=== PATIENT | male | born 1935 | race Caucasian/White ===

== ENCOUNTER → 2016-07-27 | Outpatient (CLI) | payer MEDICARE, BC ==
[~2016-07-27] MED LIST: ALLOPURINOL300 MG PO; AMARYL4 MG PO; ASPIR-TRIN325 MG PO; AVODART0.5 MG PO; BUMEX1 MG PO; COZAAR50 MG PO; D-MANNOSE PO; D-MANNOSE1 GM PO; ELEMENTAL IRON PO; GLUCOPHAGE1000 MG PO; IMDUR60 MG PO; K-TAB 10MEQ10 MEQ PO; KEFLEX250 MG PO; LEVOTHROID (SY50 MCG PO; LOPRESSOR100 MG PO; MAGNESIUM250 MG PO; NITROSTAT0.4 MG SL; NORCO 7.5-3251 EACH PO; OXYGEN M-15 INH; OXYGEN M-15 NS; PRADAXA150 MG PO; PRILOSEC20 M1 PO; TYLENOL WITH C1 EACH PO; ZAROXOLYN2.5 MG PO; ZOCOR40 MG PO
== END | disposition disaster alternative care site (69) ==
LOC: GRAD 15:30
DX: N20.0 Calculus of kidney (principal)

== ENCOUNTER → 2016-08-25 | Day surgery (SDC) | payer MEDICARE, BC ==
[~2016-08-25] VITALS: Ht 188 cm; Wt 114.0 kg
--- NOTE | ~2016-08-25 | OR ---
PATIENT'S NAME: ROXANA ROLDAN [facility] AGE: 81 Y [address] ROOM: [place] [id number] LOCATION: [facility] – [place] ADMIT DATE: 08/25/2016 OR/Procedure Report DISCHARGE DATE: FAMILY PHYSICIAN: Yuni Monae MD ATTENDING PHYSICIAN: Patricia Hughes SURGEON: Patricia Hughes MD TERMINOLOGIST: DATE OF PROCEDURE: 08/25/2016 PREOPERATIVE DIAGNOSIS: Left nephrolithiasis. POSTOPERATIVE DIAGNOSES: 1. Left nephrolithiasis. 2. Benign prostatic hypertrophy. PROCEDURES PERFORMED: 1. Cystoscopy. 2. Left stent placement. 3. Left extracorporeal shock wave lithotripsy. ANESTHESIA: MAC. COMPLICATIONS: None. INDICATION FOR PROCEDURE: The patient is an 81-year-old male with a history of recurrent cystitis with urinary retention. Abdominal x-ray revealed left nephrolithiasis. The patient does have a previous history of stone disease. DETAILS OF PROCEDURE: After informed consent was obtained, the patient was taken to the operating room. A MAC anesthetic was applied, and he was placed in the dorsal lithotomy position. The groin area was prepped and draped in the normal sterile fashion. Cystoscope was introduced into the urethra and bladder without difficulty. The left ureteral orifice was identified and cannulated with a guidewire up into the renal pelvis. Next, a 6-Romanian multi- length ureteral stent was passed over the guidewire up into the renal pelvis. The bladder was then emptied and the cystoscope removed. The patient was then transferred to the lithotripsy table. Fluoroscopy was then used to locate his stone. The previously thought large stone was actually outside of the renal pelvis and most likely was vascular calcification. A 3 x 4 mm left lower pole stone was targeted and received shocks starting at 16 kV and gradually increased to 24 kV. A total of 3000 shocks was used, and the stone appeared to fragment well. The patient tolerated his procedure well and transferred to the recovery room in good condition. PATIENT'S NAME: ROXANA ROLDAN [facility] AGE: 81 Y [address] ROOM: [place] [id number] LOCATION: [facility] [place] ADMIT DATE: 08/25/2016 OR/Procedure Report DISCHARGE DATE: FAMILY PHYSICIAN: Yuni Monae MD ATTENDING PHYSICIAN: Patricia Hughes MD Shanti BOLTON /[id number] d: 08/26/16 1231 t: 09/14/16 1010, OPERATIVE SUMMARY
[2016-08-25 11:46] LABS: BASOPHIL % 0.5 %; EOSINOPHIL # 0.2 K/uL (0.0-0.5); EOSINOPHIL % 4.2 %; HEMATOCRIT 41.8 % (33.0-50.0); IMMATURE GRANULOCYTE % 0.3 %; LYMPHOCYTE # 0.7 K/uL (0.8-4.0); LYMPHOCYTE % 12.5 %; MCH 27.6 pg (27.0-34.0); MCHC 33.5 gm/dL (32.0-36.5); MCV 82.4 fl (83.0-98.0); MONOCYTE # 0.4 K/uL (0.0-1.0); MONOCYTE % 6.8 %; MPV 10.1 fl (9.4-12.4); NEUTROPHIL # (ANC) 4.3 K/uL (1.4-9.0); NEUTROPHIL % 75.7 %; NRBC % 0 /100WBC (0-0.00); PLATELET COUNT 129 K/uL (150-450); RBC 5.07 M/uL (3.50-5.50); RDW-CV 15.8 % (11.9-14.6); WBC 5.7 K/uL (4.0-11.0)
[2016-08-25 12:03] LABS: ALBUMIN 3.5 gm/dL (3.5-5.0); ALK PHOS 40 IU/L (33-138); ALT 32 IU/L (12-78); ANION GAP 10.6 (10.0-19.0); AST 32 IU/L (10-40); BLOOD UREA NITROGEN 17 mg/dL (6-24); CALCIUM 9.3 mg/dL (8.5-10.5); CHLORIDE 103 mMol/L (96-110); CO2 27 mMol/L (22-32); CREATININE 1.1 mg/dL (0.6-1.3); ESTIMATED GFR (MDRD EQUATION) > 60; POTASSIUM 4.6 mMol/L (3.7-5.1); SODIUM 136 mMol/L (135-145); TOTAL BILIRUBIN 1.2 mg/dL (0.0-1.5); TOTAL PROTEIN 7.4 g/dL (6.0-8.4)
== END | disposition disaster alternative care site (69) ==
LOC: GPOC 08-20 09:00 → GSDC 09:00
PROVIDERS: Urology
PROC: 0T778DZ Dilation of Left Ureter with Intraluminal Device, Via Natural or Artificial Opening Endoscopic (ICD-10-PCS; principal; 2016-08-25)
PROC: 0TF4XZZ Fragmentation in Left Kidney Pelvis, External Approach (ICD-10-PCS; 2016-08-25)
DX: N20.0 Calculus of kidney (principal); N40.0 Benign prostatic hyperplasia without lower urinary tract symptoms; I10 Essential (primary) hypertension; I25.2 Old myocardial infarction; I25.10 Atherosclerotic heart disease of native coronary artery without angina pectoris; E78.00 Pure hypercholesterolemia, unspecified; I25.5 Ischemic cardiomyopathy; J44.9 Chronic obstructive pulmonary disease, unspecified; G47.30 Sleep apnea, unspecified; K21.9 Gastro-esophageal reflux disease without esophagitis; M19.90 Unspecified osteoarthritis, unspecified site; L40.9 Psoriasis, unspecified; I48.91 Unspecified atrial fibrillation; E11.9 Type 2 diabetes mellitus without complications; Z95.1 Presence of aortocoronary bypass graft; Z98.41 Cataract extraction status, right eye; Z98.42 Cataract extraction status, left eye; Z98.890 Other specified postprocedural states; Z79.82 Long term (current) use of aspirin; Z79.899 Other long term (current) drug therapy; Z88.2 Allergy status to sulfonamides; Z88.8 Allergy status to other drugs, medicaments and biological substances
CPT/HCPCS: C1769; J1956; J2001; J7030

== ENCOUNTER → 2016-09-01 | Outpatient (CLI) | payer MEDICARE, BC | END | disposition disaster alternative care site (69) | LOC: GRAD 10:19 | DX: N20.0 Calculus of kidney (principal); Z96.0 Presence of urogenital implants; N21.1 Calculus in urethra ==